=== PATIENT | female | born 1960 | race Caucasian/White ===

== ENCOUNTER → 2023-04-02 17:54 | Outpatient (REF) | payer OTHER, SELFPAY | LOC: WDC 17:54 | PROVIDERS: ATTENDING PHYSICIAN Family Medicine | DX: Z12.31 Encounter for screening mammogram for malignant neoplasm of breast (principal) | CPT/HCPCS: 77063; 77067 ==

== ENCOUNTER → 2024-04-07 14:08 | Outpatient (REF) | payer OTHER, SELFPAY | LOC: WDC 14:08 | PROVIDERS: ATTENDING PHYSICIAN Internal Medicine | DX: Z12.31 Encounter for screening mammogram for malignant neoplasm of breast (principal) | CPT/HCPCS: 77063; 77067 ==